=== PATIENT | male | born 1965 ===

== ENCOUNTER 2017-04-21 14:40 | Emergency (ER) | payer SELFPAY ==
[2017-04-21 15:27] VITALS: BP 117/86
--- NOTE | 2017-04-21 15:51 | RAD ---
INDICATION: Back pain COMPARISON: None TECHNIQUE: Routine PA, lateral, and oblique imaging was performed . FINDINGS: Bones: There are no acute bony findings. There are arthritic changes consisting of multilevel degenerative disc disease with endplate sclerosis and minor spurring. There is multilevel facet arthropathy.. Alignment: Mild levoscoliosis Disc spaces: The disc spaces are well-maintained Soft tissues: There are no soft tissue abnormalities. IMPRESSION: MODERATE MULTILEVEL DEGENERATIVE DISC DISEASE.
--- NOTE | 2017-04-21 16:09 | UC ---
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 onset of pain at work occasional left foot pain no bowel or bladder dysfunction no hx ca no fever/chills no uti symptoms or hematuria - History of Current Complaint Chief Complaint: UCBackPain Stated Complaint: BACK PAIN Time Seen by Provider: 04/21/17 15:05 Hx Obtained From: Patient Onset/Duration: Gradual Onset, Lasting Hours Timing: Constant Severity Initially: Severe Severity Currently: Mild Pain Intensity: 3 - 8 or 9 at times Pain Scale Used: 0-10 Numeric Back Pain: Is Diffuse Character: Throbbing, Spasmodic, Stiffness Aggravating: Movement, Lifting, Bending Alleviating: Rest Associated Signs And Symptoms: Positive: Negative Related History: Occupational Injury Full Body (No Head): 1 - pain - Allergies/Home Medications Allergies/Adverse Reactions: Allergies Allergy/AdvReac Type Severity Reaction Status Date / Time No Known Allergies Allergy Verified 04/21/17 15:01 Home Medications: Home Medications Acetaminophen TAB* [Tylenol TAB*] 650 mg PO Q4H PRN 04/21/17 [History Confirmed 04/21/17] FLUoxetine* [PROzac*] 20 mg PO DAILY 04/21/17 [History Confirmed 04/21/17] Naproxen TAB* [Naprosyn 250 mg TAB*] 750 mg PO Q8H PRN 04/21/17 [History Confirmed 04/21/17] Tizanidine HCl 8 mg PO DAILY 04/21/17 [History Confirmed 04/21/17] PMH/Surg Hx/FS Hx/Imm Hx Previously Healthy: Yes - Surgical History Surgical History: Yes Surgery Procedure, Year, and Place: L ankle surgery 2003 - Family History Known Family History: Positive: Hypertension - Social History Alcohol Use: None Substance Use Type: None Smoking Status (MU): Never Smoked Tobacco Review of Systems Constitutional: Negative Skin: Negative Eyes: Negative ENT: Negative Respiratory: Negative Cardiovascular: Negative Gastrointestinal: Negative Genitourinary: Negative Motor: Negative Neurovascular: Negative Musculoskeletal: Myalgia Neurological: Negative Psychological: Negative All Other Systems Reviewed And Are Negative: Yes Physical Exam Triage Information Reviewed: Yes Appearance: Well-Appearing, No Pain Distress, Well-Nourished Vital Signs: Initial Vital Signs Temp 97.8 F 04/21/17 14:56 Pulse 62 04/21/17 14:56 Resp 16 04/21/17 14:56 BP 89/52 04/21/17 14:56 Pulse Ox 99 04/21/17 14:56 Vital Signs Reviewed: Yes Eyes: Positive: Conjunctiva Clear ENT: Positive: Hearing grossly normal. Negative: Nasal congestion, Nasal drainage, Tonsillar exudate, Trismus, Muffled/hoarse voice Neck: Positive: Supple, Nontender Respiratory: Positive: Lungs clear, Normal breath sounds, No respiratory distress, No accessory muscle use Cardiovascular: Positive: RRR, No Murmur Abdomen Description: Positive: Nontender, No Organomegaly, Soft. Negative: Bruit, CVA Tenderness (R), CVA Tenderness (L) Musculoskeletal: Positive: ROM Intact, No Edema Neurological Exam: Normal Psychological Exam: Normal Skin Exam: Normal Diagnostics - Radiology No standard instances Xray Interpretation: No Acute Changes - DDD Radiology Interpretation Completed By: Radiologist Back Pain Course/Dx - Differential Dx/Diagnosis Provider Diagnoses: acute lumbar myofascial strain/spasm. DDD Discharge - Discharge Plan Condition: Stable Disposition: HOME Prescriptions: Naproxen Sodium [Naproxen Sodium 500 MG TAB] 500 mg PO BID PRN #30 tab PRN Reason: Pain Tizanidine HCl 4 mg PO TID PRN #12 cap MDD 3 PRN Reason: Spasms - Back Patient Education Materials: Low Back Strain (ED), Degenerative Disc Disease ( ED) Forms: *Work Release Referrals: Jennifer Gonzalez MD [Primary Care Provider] - Additional Instructions: recheck this weekend if you feel unable to return to full duty
== END 2017-04-21 16:34 | disposition home or self-care (01) ==
LOC: UCCORT 14:40
DX: S39.012A Strain of muscle, fascia and tendon of lower back, initial encounter (principal); X50.0XXA Overexertion from strenuous movement or load, initial encounter; Y93.89 Activity, other specified; Y92.69 Other specified industrial and construction area as the place of occurrence of the external cause; Y99.0 Civilian activity done for income or pay; M62.830 Muscle spasm of back; M51.37 Other intervertebral disc degeneration, lumbosacral region; M79.672 Pain in left foot
CPT/HCPCS: 72110; 99202; G0463